=== PATIENT | female | born 1985 | race Caucasian/White ===

== ENCOUNTER 2018-06-16 09:09 | Emergency (ER) | payer MEDICAID, OTHER ==
[2018-06-16 09:40] VITALS: BMI 34.7
[2018-06-16 10:16] LABS: SQUAMOUS EPITHIAL < 1 /hpf (0-5); URINE BACTERIA RARE (<OCC); URINE BILIRUBIN NEGATIVE (NEGATIVE); URINE BLOOD NEGATIVE (NEGATIVE); URINE CLARITY Clear (Clear); URINE COLOR Yellow (YELLOW); URINE GLUCOSE (UA) NORMAL (Normal); URINE LEUKOCYTE ESTERASE NEG Leu/uL (Negative); URINE PROTEIN NEGATIVE (NEGATIVE); URINE UROBILINOGEN NORMAL mg/dL (0.2-1.0)
[2018-06-16 15:31] VITALS: BP 104/71; PULSE 79; RESP 90; TEMP 98; O2SAT 100
--- NOTE | 2018-06-16 17:55 | OBHP ---
Datetime: 06/16/2018 09:54 IP Adm Impression: , intrauterine IP Chief Complaint Other: abdominal pain IP Admit Plan: Discharge home Admit Comment, IP Provider: 32 year old at 31.2 weeks by first trimester ultrasound present s to OB ED triage for lower abdominal pain that woke her up last night. Patient states it was a sharp 8-9/10 pain last night at its worse. Now it is a 5/10. Pain decreases with positional change; she to ok out the pillows behind her back last night and was able to sleep through the rest of the morning. This abdominal pain has never happened in any of her pregnancies. Patient feels a little nauseated no w because she said she did not eat today. Patient denies nausea during last night, vomiting, fever, c hills, sweats, dysuria, diarrhea, constipation, eating abnormal foods. Patient endorses an increased urinary frequency however she states increased frequency is nothing abnormal during her . Per patient, care by Dr. Will has been uneventful. Patient's last appointment with marek pringle was last week. She did not call him before she came to triage. OB hx: Patient thinks her live children were born about 6 lbs each roughly. 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 Denies history of other STI, fibroids, abnormal PAP after the HPV tx (regular screening after the HPV tx). PMHx: denies PSHx: C/S x 2; D_C x 2 FHx: Father developed DM, Mother possibly has pre-DM SocHx: Active tobacco smoker 2-3 cigs/day since 17 y/o. Quit for some time during other pregnancie s. Denies EtOH and illicit drugs. Works as a 3d specialist. Legally single. Father of baby i nvolved with current care of male fetus. Meds: Zyrtec 10 mg daily, PNV All: NKDA vitals and physical exam: see above A/P: 32 year old at 31.2 weeks by first trimester ultrasound presents to OB ED for lower a bdominal pain . -UA done - negative for UTI -NST within normal limits -recommend to follow up with Dr. Will - patient has follow up appt on 07/05. case discussed with Dr. Clive Melo PGY1 Attending Note: patient seen, evaluated and examined by me with the resident. I agree with the abo ve as documented. Pelvic Type - PN: Not Done Extremities - PN: Normal Abdomen - PN: Abnormal Back - PN: Normal Breast - PN: Not Done Lungs - PN: Normal Heart - PN: Normal Thyroid - PN: Not Done Neurologic - PN: Not Done HEENT - PN: Not Done General - PN: Normal FHR - Baseline A Provider: 150 Contraction Comments Provider: none Comments, ACOG Physical Exam: abdomen: mild tenderness to palpation bilaterally Gestation - Est Wks by US: 31w 2d IP Hx Assessment: The History has been Updated EGA AdmitDate IP: 31.2 Vital Signs Provider: Reviewed; Within Normal Limits IP Chief Complaint: Maternal discomfort; evaluation; Other NICHD Variability Prov Fetus A: Moderate 6-25bpm NICHD Accel Fetus A IP Provider: [id number] FHR Category Provider Fetus A: Category I NICHD Decel Fetus A IP Provider: None Dilatation, Provider: deferred Genitourinary Exam: Not Done DTRs - PN: Not Done
== END 2018-06-16 10:55 | disposition home or self-care (01) ==
LOC: C.EROB 09:09
DX: O26.893 Other specified pregnancy related conditions, third trimester (principal); R10.30 Lower abdominal pain, unspecified; Z3A.31 31 weeks gestation of pregnancy